=== PATIENT | male | born 1985 | race Caucasian/White ===

== ENCOUNTER 2018-07-09 13:23 | Emergency (ER) | payer BC, OTHER ==
[~2018-07-09] VITALS: Ht 193 cm; Wt 78.0 kg
[2018-07-09 13:23] VITALS: BP_SYST 124
--- NOTE | 2018-07-09 13:23 | NUR ---
Patient to ER bed 1 to gown for evaluation. Side rails up. Report given to ORLANDO Arce.
--- NOTE | 2018-07-09 13:24 | NUR ---
Patient is awake, alert, and oriented x4. Brought in via EMS. Patient was observed having 6 seizures today. Patient is postictal, denies pain at this time.
--- NOTE | 2018-07-09 13:28 | NUR ---
ER Dr. Evangelista at bedside examining patient.
[2018-07-09] MEDS ORDERED: NS 1000 ML IV.SOLN IV ONE (13:30)
[2018-07-09] MEDS ORDERED: NACL 0.9% 1,000 ML IV ONE (13:30)
--- NOTE | 2018-07-09 13:45 | NUR ---
PT at bedside with mother. PT advised that he is feeling pain similar to pins and needles at finger tips and toes. Per mother its due to neuropathy 05/17. Side rails padded and bed at lowest position. PT vitals stable.
[2018-07-09] MEDS ORDERED: PRO40 PO (14:00)
[2018-07-09] MEDS ORDERED: PROTEIN PO (14:00)
[2018-07-09] MEDS ORDERED: MAGNESIUM PO (14:00)
[2018-07-09] MEDS ORDERED: PREG75CA PO (14:00)
[2018-07-09] MEDS ORDERED: ZONI100C42 PO (14:00)
[2018-07-09] MEDS ORDERED: PRED10TA PO (14:00)
[2018-07-09] MEDS ORDERED: PYRI100T2 PO (14:00)
[2018-07-09] MEDS ORDERED: VITD2000 PO (14:00)
[2018-07-09] MEDS ORDERED: ACYC400T PO (14:00)
[2018-07-09] MEDS ORDERED: LORA-259 PO (14:00)
[2018-07-09] MEDS ORDERED: SULF1TAB47 PO (14:00)
[2018-07-09] MEDS ORDERED: MET10 PO (14:00)
[2018-07-09] MEDS ORDERED: CYAN100T PO (14:00)
[2018-07-09] MEDS ORDERED: LAMO200T2 PO (14:00)
[2018-07-09] MEDS ORDERED: HYDR2TAB4 PO (14:00)
[2018-07-09] MEDS ORDERED: SERT100T PO (14:00)
[2018-07-09] MEDS ORDERED: FOLI-43 PO (14:00)
[2018-07-09] MEDS ORDERED: PERA12TA PO (14:00)
[2018-07-09] MEDS ORDERED: OMEG1CAP PO (14:00)
[2018-07-09] MEDS ORDERED: QUET200T PO (14:00)
[2018-07-09] MEDS ORDERED: SER100 PO (14:00)
--- NOTE | 2018-07-09 14:00 | NUR ---
Medication reconciliation completed with information provided by patient's list. Any prior medication reconciliation on file was reviewed and corrected.
[2018-07-09 14:04] LABS: BASOPHILS # (AUTO) 0.1 K/uL (0.0-0.2); BASOPHILS % (AUTO) 0.7 % (0.0-2.0); EOSINOPHILS # (AUTO) 0.2 K/uL (0.0-0.4); EOSINOPHILS % (AUTO) 1.7 % (0.0-4.0); HEMOGLOBIN 14.1 g/dL (14.0-18.0); LYMPHOCYTES % (AUTO) 18.4 % (20.5-51.5); MEAN CORPUSCULAR HEMOGLOBIN 35 pg (27-31); MEAN CORPUSCULAR HGB CONC 34 % (32-36); MEAN CORPUSCULAR VOLUME 104 fL (79.0-98.0); MONOCYTES # (AUTO) 1.1 K/uL (0.0-1.0); MONOCYTES % (AUTO) 10.6 % (1.7-9.3); NEUTROPHILS # (AUTO) 7.4 K/uL (1.8-7.7); NEUTROPHILS % (AUTO) 68.6 % (40.0-70.0); PLATELET COUNT (AUTO) 563 K/uL (130-430); RED BLOOD CELL COUNT(AUTO) 4.05 MIL/uL (4.2-6.2); RED CELL DISTRIBUTION WIDTH 14.6 % (9.0-15.0); WHITE BLOOD COUNT (AUTO) 10.8 K/uL (4.8-10.8)
[2018-07-09] MEDS ORDERED: ONDANSETRON HCL 4 MG/2 ML VIAL IVP ONE (14:15)
[2018-07-09 14:35] LABS: INR 0.9 (0.80-1.20); PROTHROMBIN TIME 9.2 SECS (9.5-12.5)
[2018-07-09 14:41] LABS: ALBUMIN 4.1 g/dL (3.4-4.8); CALCIUM 9.7 mg/dL (8.4-11.0); CREATININE 0.92 mg/dL (0.55-1.30); POTASSIUM 3.7 mmol/L (3.5-5.1); TOTAL BILIRUBIN 0.1 mg/dL (0.0-1.0)
--- NOTE | 2018-07-09 14:45 | NUR ---
PT laying in bed with eyes close. Mother still at bedside. PT vitals stable. No presentation of acute distress.
[2018-07-09 15:04] LABS: BILIRUBIN,URINE NEGATIVE (NEGATIVE); BLOOD, URINE NEGATIVE (NEGATIVE); CLARITY/URINE CLEAR (CLEAR); COLOR,URINE YELLOW (YELLOW); GLUCOSE,URINE NEGATIVE (NEGATIVE); KETONES,URINE NEGATIVE (NEGATIVE); LEUKOCYTE ESTERASE ,URINE NEGATIVE (NEGATIVE); NITRITE, URINE NEGATIVE (NEGATIVE); PROTEIN URINE NEGATIVE (NEGATIVE); UROBILINOGEN,URINE 0.2 (0.2-1.0)
[2018-07-09 15:14] LABS: BARBITURATE, URINE NEGATIVE (NEG <=200); BENZODIAZEPINE, URINE NEGATIVE (NEG <=150); CANNABINOID, URINE POSITIVE (NEG <=50); COCAINE, URINE NEGATIVE (NEG <=150); METHAMPHETAMINES SCREEN,URINE NEGATIVE (NEG <=500); OPIATE, URINE NEGATIVE (NEG <=100); PHENCYCLIDINE SCREEN,URINE NEGATIVE (NEG <=25); UR TRICYCLIC ANTIDEPRESSANTS NEGATIVE (NEG <=300); URINE AMPHETAMINE NEGATIVE (NEG <=500); URINE METHADONE NEGATIVE (NEG <=200); URINE OXYCODONE SCREEN NEGATIVE (NEG <=100); URINE PROPOXYPHENE SCREEN NEGATIVE (NEG <=300)
--- NOTE | 2018-07-09 15:44 | NUR ---
PT laying on gurney asleep with mother at bedside. PT vital stable and pt not presenting any signs of acute distress. Padded side rails and bed at lowest position.
--- NOTE | 2018-07-09 16:00 | NUR ---
Patient given written and verbal discharge instructions and verbalizes understanding. ER MD discussed with patient the results and treatment provided. Patient in stable condition. ID arm band removed. IV catheter removed intact and dressing applied, no active bleeding. Rx of Ativan given. Patient educated on pain management and to follow up with PMD. Pain Scale 0/10. Opportunity for questions provided and answered. Medication side effect fact sheet provided.
[2018-07-09 16:05] VITALS: BP_SYST 124
== END 2018-07-09 16:00 | disposition home or self-care (01) ==
LOC: SED 13:23
DX: R56.9 Unspecified convulsions (principal); F12.90 Cannabis use, unspecified, uncomplicated; F41.9 Anxiety disorder, unspecified; J45.909 Unspecified asthma, uncomplicated; R03.0 Elevated blood-pressure reading, without diagnosis of hypertension; Z88.6 Allergy status to analgesic agent; Z88.8 Allergy status to other drugs, medicaments and biological substances; Z91.011 Allergy to milk products; Z79.899 Other long term (current) drug therapy
CPT/HCPCS: 36415; 70450; 71045; 80053; 80307; 81003; 82550; 83605; 83690; 84146; 84484; 85025; 85610; 85730; 87040; 96374; 99284; J2405; J7030